=== PATIENT | male | born 1935 | race Hispanic/Latino ===

== ENCOUNTER 2022-07-15 20:20 | Inpatient (IN) | payer MEDICARE, OTHER ==
--- NOTE | 2022-07-15 21:49 | Emergency Department Report ---
HPI - General Chief Complaint: Altered Mental Status PUI?: Yes Time Seen by Provider: 07/15/22 21:17 - HPI HPI: 86-year-old male with a history of COPD, on approximately 2 L of oxygen via nasal cannula, chronic dysphagia and laryngitis per daughter's report, brought in by EMS for weakness. Patient's daughter reports that 7 days ago, he was discharged from an extensive stay at [facility]. She states he was admitted initially admitted to telemetry unit but was subsequently upgraded to the intensive care unit at the facility secondary to worsening respiratory status. She states that he has been on the decline "for some time." Per her report, the patient was made to be under palliative care since discharge but has not had a home evaluation. No recent falls or head traumas. Patient denies any symptoms at this time. Pain currently 0-10 ED Past Medical Hx - Past Medical History Hx Hypertension: Yes Hx Arthritis: Yes Hx Asthma: No Hx COPD: Yes Additional medical history: DDD - Surgical History Past Surgical History?: Yes Additional Surgical History: CERVICAL SPINE FUSION - Social History Smoking Status: Unknown if ever smoked Substance Use Type: None - Medications Home Medications: Home Medications Medication Instructions Recorded Confirmed Last Taken Type Albuterol Mdi (or & Nicu Only) 3 puff IH TID PRN 04/17/15 04/17/15 04/17/15 History [ProAir HFA Inhaler] Atorvastatin Calcium [Lipitor] 40 mg PO DAILY 04/17/15 04/17/15 04/17/15 History Cholecalciferol (Vitamin D3) 1,000 unit PO QDAY 04/17/15 04/17/15 04/17/15 History [Vitamin D3 2,000 UNIT CAP] Formoterol Fumarate [Foradil] 12 mcg IH Q12HR 04/17/15 04/17/15 04/17/15 History Hydrocortisone 1% [Hydrocortisone 1 applicatio TP TID 04/17/15 04/17/15 04/17/15 History 1% CREAM] Aspirin [Aspirin BABY CHEW TAB] 162 mg PO QDAY #30 tab.chew 04/20/15 Unknown Rx Ipratropium/Albuterol Sulfate 1 ampul IH Q6HRT PRN #1 box 04/20/15 Unknown Rx [DUONEB *Not for PRN Use*] Omeprazole [PriLOSEC] 40 mg PO DAILY #30 capsule. 04/20/15 Unknown Rx Prednisone [predniSONE 10 mg 10 mg PO .TAPER #1 tab.ds.pk 04/20/15 Unknown Rx (6-Day Pack, 21 Tabs)] levoFLOXacin [Levaquin] 500 mg PO QDAY #7 tablet 04/20/15 Unknown Rx ED Review of Systems ROS: Stated complaint: AMS Other details as noted in HPI Comment: All other systems reviewed and negative Physical Exam - Physical Exam Vital Signs: Vital Signs 07/15/22 07/15/22 20:20 21:05 Temperature 98.3 F 98.3 F Pulse Rate 80 85 Respiratory 18 20 Rate Blood Pressure 119/54 138/85 O2 Sat by Pulse 98 98 Oximetry General: Gen: Chronically ill-appearing frail elderly gentleman, lying on stretcher, speaking in full sentences, no drooling no stridor no respiratory distress, HEENT: Normocephalic atraumatic pupils equally round and reactive to light extraocular muscles intact sclera anicteric Neck: Full range of motion, no midline spinal tenderness palpation, no JVD, no carotid bruits, no nuchal rigidity CVS: S1-S2 regular rate and rhythm with no gallops rubs or murmurs, chest wall nontender Pulmonary: Clear to auscultation bilaterally, no wheezes rales or rhonchi Abdomen: Soft nondistended nontender no guarding or rebound tenderness, no palpable deformities or step-offs, normal active bowel sounds, no hepatospleno megaly, no pulsatile masses : Deferred Extremities: No cyanosis no clubbing no edema, intact distal peripheral pulses, Integumentary: Skin normal, no petechia no purpura no abscess no lacerations no evidence of trauma no evidence of infection Neuro: Patient is awake alert and oriented to person place time situation, mentating well, cranial nerves II through XII intact, no focal neurodeficits, se nsation grossly intact, unable to test gait at this time secondary to patient's current clinical status Psych: Calm cooperative, mood affect normal ED Course Vital Signs 07/15/22 07/15/22 20:20 21:05 Temperature 98.3 F 98.3 F Pulse Rate 80 85 Respiratory 18 20 Rate Blood Pressure 119/54 138/85 O2 Sat by Pulse 98 98 Oximetry ED Medical Decision Making - Lab Data Result diagrams: 07/15/22 21:31 07/15/22 21:31 - EKG Data EKG shows normal: sinus rhythm Rate: normal - EKG Data When compared to previous EKG there are: no significant change - Medical Decision Making 86-year-old male with multiple medical comorbidities brought in by EMS for weakness and altered mental status. On work-up patient found to have significant hyponatremia as well as leukocytosis. Leukocytosis likely secondary to UTI. Diagnostic imaging negative for any acute pathology. Patient has been given intravenous fluids, and Rocephin 1 g IV. Patient has been accepted by admitting railway signal technician, , for admission to the hospital service Critical Care Time: No Critical care attestation.: If time is entered above; I have spent that time in minutes in the direct care of this critically ill patient, excluding procedure time. ED Disposition Clinical Impression: Altered mental status, UTI (urinary tract infection), Hyponatremia Disposition: ADMITTED INPATIENT Is pt being admited?: Yes Does the pt Need Aspirin: No Condition: Stable
[2022-07-15 21:54] LABS: Hematocrit 46.3 % (35.5-45.6); Hemoglobin 15.3 gm/dl (11.8-15.2); Mean Corpuscular HGB Conc 33 % (32-34); Mean Corpuscular Volume 94 fl (84-94); Platelet Count 255 K/mm3 (140-440); Red Blood Count 4.93 M/mm3 (3.65-5.03); Red Cell Distribution Width 14.7 % (13.2-15.2)
[2022-07-15 21:56] LABS: Alanine Aminotransferase 16 units/L (7-56); Albumin 3.7 g/dL (3.9-5); Blood Urea Nitrogen 15 mg/dL (9-20); Hemolysis Index 115
[2022-07-15 22:00] LABS: BUN/Creatinine Ratio 50
--- NOTE | 2022-07-15 22:07 | XRay Report ---
CHEST 1 VIEW 07/15/2022 9:33 PM INDICATION / CLINICAL INFORMATION: altered mental status. COMPARISON: None available. FINDINGS: SUPPORT DEVICES: None. HEART / MEDIASTINUM: No significant abnormality. LUNGS / PLEURA: Lungs are hyperexpanded with chronic appearing interstitial prominence.. Streaky opac ities in both lung bases, likely atelectasis. No focal consolidation. No pneumothorax. ADDITIONAL FINDINGS: No significant additional findings. IMPRESSION: 1. No acute findings. Signer Name: Riley Peñaloza MD Signed: 07/15/2022 10:03 PM Workstation Name: [facility]
--- NOTE | 2022-07-15 22:21 | Cat Scan Report ---
CT HEAD WITHOUT CONTRAST INDICATION / CLINICAL INFORMATION: altered mental status. TECHNIQUE: All CT scans at this location are performed using CT dose reduction for ALARA by means of automated exposure control. COMPARISON: None available. FINDINGS: HEMORRHAGE: None. EXTRA-AXIAL SPACES: Normal in size and morphology for the patient's age. VENTRICULAR SYSTEM: Normal in size and morphology for the patient's age. CEREBRAL PARENCHYMA: Moderate white matter hypodensities likely representing microangiopathy. No acut e territorial infarct. Chronic lacunar infarct right basal ganglia. MIDLINE SHIFT / HERNIATION: None. CEREBELLUM / BRAINSTEM: No significant abnormality. ORBITS: Normal as visualized. SOFT TISSUES: No significant abnormality. SKULL: No significant abnormality. PARANASAL SINUSES / MASTOID AIR CELLS: Mild mucosal thickening sphenoid sinus. ADDITIONAL FINDINGS: None. IMPRESSION: 1. No acute intracranial abnormality. Signer Name: Riley Peñaloza MD Signed: 07/15/2022 10:17 PM Workstation Name: [id number]
[2022-07-15] MEDS ORDERED: cefTRIAXone/NS 1 GM/50 ML 1 GM/50 ML BAG IV ONE (22:23)
[2022-07-15] MEDS ORDERED: SODIUM CHLORIDE 0.9% 1000 ML 1,000 ML IV ONE (22:23)
[2022-07-15 22:35] LABS: Mucus,Urine 3+ /HPF
[2022-07-15 22:36] LABS: Color,Urine Amber (Yellow); Ictotest,Urine Negative (Negative); RBC,Urine > 182.0 /HPF (0.0-6.0)
[2022-07-15 22:50] LABS: Band Neutrophils # (Manual) 0.5 K/mm3; Basophils % (Manual) 0 % (0.0-1.8); Eosinophils % (Manual) 0 % (0.0-4.3); Total Cells Counted 100
[2022-07-15 22:51] LABS: Anisocytosis 1+; Large Platelets Few; Macrocytosis Few; Ovalocytes Few; Platelet Estimate Consistent w Auto
[2022-07-15] MEDS ORDERED: MORPHINE 4 MG/1 ML INJ IV PRN (23:07)
[2022-07-15] MEDS ORDERED: ONDANSETRON 4 MG/2 ML INJ IV PRN (23:07)
[2022-07-15] MEDS ORDERED: ACETAMINOPHEN 325 MG TAB PO PRN (23:07)
--- NOTE | 2022-07-15 23:17 | History and Physical Report ---
History of Present Illness Date of examination: 07/15/22 Date of admission: 07/15/2022 Chief complaint: Altered Mental Status Generalized weakness History of present illness: 86-year-old white male with known history of COPD on 2 L of oxygen at home by nasal cannula, history of chronic dysphagia and laryngitis presenting to the emergency room today via EMS for evaluation of generalized weakness and changes in mental status. Most of the history was provided by daughter and who were by the bedside. Patient was recently discharged from [facility] about a week ago for worsening respiratory status. There has been no fever or chills, no chest pain or shortness of breath, no nausea vomiting and no abdominal pain. According to family, patient has not been feeling quite well lately. Work-up in the emergency room today, lab reveals hyponatremia of 13 leukocytosis of 24. Urinalysis reveals a UTI. Chest x-ray and CT scan of the head were unremarkable. Past History Past Medical History: arthritis, COPD, hypertension, hyperlipidemia, other (DDD) Past Surgical History: Other (CERVICAL SPINE FUSION) Social history: no significant social history Family history: no significant family history Medications and Allergies Allergies Allergy/AdvReac Type Severity Reaction Status Date / Time Niacin Preparations AdvReac Rash Verified 04/17/15 13:45 simvastatin AdvReac LEG SPASMS Verified 04/17/15 13:45 Home Medications Medication Instructions Recorded Confirmed Last Taken Type Albuterol Mdi (or & Nicu Only) 3 puff IH TID PRN 04/17/15 04/17/15 04/17/15 History [ProAir HFA Inhaler] Atorvastatin Calcium [Lipitor] 40 mg PO DAILY 04/17/15 04/17/15 04/17/15 History Cholecalciferol (Vitamin D3) 1,000 unit PO QDAY 04/17/15 04/17/15 04/17/15 Histo ry [Vitamin D3 2,000 UNIT CAP] Formoterol Fumarate [Foradil] 12 mcg IH Q12HR 04/17/15 04/17/15 04/17/15 History Hydrocortisone 1% [Hydrocortisone 1 applicatio TP TID 04/17/15 04/17/15 04/17/15 History 1% CREAM] Aspirin [Aspirin BABY CHEW TAB] 162 mg PO QDAY #30 tab.chew 04/20/15 Unknown Rx Ipratropium/Albuterol Sulfate 1 ampul IH Q6HRT PRN #1 box 04/20/15 Unknown Rx [DUONEB *Not for PRN Use*] Omeprazole [PriLOSEC] 40 mg PO DAILY #30 capsule. 04/20/15 Unknown Rx Prednisone [predniSONE 10 mg 10 mg PO .TAPER #1 tab.ds.pk 04/20/15 Unknown Rx (6-Day Pack, 21 Tabs)] levoFLOXacin [Levaquin] 500 mg PO QDAY #7 tablet 04/20/15 Unknown Rx Active Meds: Active Medications Sodium Chloride (Nacl 0.9% 1000 Ml) 1,000 mls @ 150 mls/hr IV BOLUS ONE Stop: 07/16/22 05:02 Review of Systems ROS unobtainable: due to mental status Exam - Constitutional Vitals: Temp Pulse Resp BP Pulse Ox 98.3 F 85 20 138/85 98 07/15/22 21:05 07/15/22 21:05 07/15/22 21:05 07/15/22 21:05 07/15/22 21:05 General appearance: Present: no acute distress, cachectic - EENT Eyes: Present: PERRL, EOM intact. Absent: scleral icterus ENT: hearing intact, clear oral mucosa, dentition normal - Neck Neck: Present: supple, normal ROM - Respiratory Respiratory effort: normal Respiratory: bilateral: CTA - Cardiovascular Rhythm: regular Heart Sounds: Present: S1 & S2. Absent: gallop, systolic murmur, diastolic murmur, rub, click - Extremities Extremities: no ischemia, pulses intact, pulses symmetrical, No edema, normal temperature, normal color, Full ROM Peripheral Pulses: within normal limits - Abdominal General gastrointestinal: Present: soft, non-tender, non-distended, normal bowel sounds. Absent: mass - Integumentary Integumentary: Present: clear, warm, dry, normal turgor. Absent: rash - Musculoskeletal Musculoskeletal: strength equal bilaterally - Psychiatric Psychiatric: cooperative - Neurologic Neurologic: CNII-XII intact, no focal deficits, moves all extremities, other (Appears mildly confused. Speech not quite coherent) Results - Labs CBC & Chem 7: 07/15/22 21:31 07/15/22 21:31 Labs: Abnormal lab results 07/15/22 07/15/22 07/15/22 Range/Units 21:31 21:31 22:10 WBC 24.0 H (4.5-11.0) K/mm3 Hgb 15.3 H (11.8-15.2) gm/dl Hct 46.3 H (35.5-45.6) % Seg Neuts % (Manual) 87.0 H (40.0-70.0) % Lymphocytes % (Manual) 7.0 L (13.4-35.0) % Seg Neutrophils # Man 20.9 H (1.8-7.7) K/mm3 Monocytes # (Manual) 1.0 H (0.0-0.8) K/mm3 Sodium 130 L (137-145) mmol/L Potassium 5.1 H (3.6-5.0) mmol/L Chloride 90.4 L (98-107) mmol/L Creatinine 0.3 L (0.8-1.3) mg/dL Glucose 132 H (75-100) mg/dL Total Bilirubin 1.50 H (0.1-1.2) mg/dL Alkaline Phosphatase 138 H (35-129) units/L Total Protein 5.7 L (6.3-8.2) g/dL Albumin 3.7 L (3.9-5) g/dL Urine WBC (Auto) 129.0 H (0.0-6.0) /HPF Assessment and Plan Assessment: 1.Altered mental Status-possibly secondary to underlying infection. 2.UTI 3.Hyponatremia 4. H/O COPD 5.Hypertension Plan: 1. Patient admitted and placed on IV fluid and empiric IV antibiotics. 2. We await culture results. 3. We will resume routine home medications and monitor vital signs closely. DVT prophylaxis: Subcutaneous heparin CODE STATUS: Full code
[2022-07-16 05:10] LABS: Hematocrit 42.9 % (35.5-45.6); Hemoglobin 14.4 gm/dl (11.8-15.2); Mean Corpuscular HGB Conc 34 % (32-34); Mean Corpuscular Volume 93 fl (84-94); Platelet Count 238 K/mm3 (140-440); Red Cell Distribution Width 14.6 % (13.2-15.2)
[2022-07-16 05:21] LABS: Blood Urea Nitrogen 16 mg/dL (9-20); Calcium 8.6 mg/dL (8.4-10.2); Hemolysis Index 9
[2022-07-16 05:26] LABS: BUN/Creatinine Ratio 80
[2022-07-16] MEDS: HEPARIN 5,000 UNIT/1 ML VIAL SUB-Q SCH ×3 (06:28→21:13)
[2022-07-16 07:05] LABS: Total Cells Counted 100
[2022-07-16 07:06] LABS: Band Neutrophils # (Manual) 0.9 K/mm3; Basophils % (Manual) 0 % (0.0-1.8); Eosinophils % (Manual) 0 % (0.0-4.3)
[2022-07-16 07:08] LABS: Anisocytosis 1+; Large Platelets Few; Macrocytosis Few; Platelet Estimate Consistent w Auto
--- NOTE | 2022-07-16 09:12 | Progress Note ---
Assessment and Plan Assessment and plan: 86-year-old white male with known history of COPD on 2 L of oxygen at home by nasal cannula, history of chronic dysphagia and laryngitis presenting to the emergency room today via EMS for evaluation of generalized weakness and changes in mental status. Most of the history was provided by daughter and who were by the bedside. Patient was recently discharged from [facility] about a week ago for worsening respiratory status. Work-up in the emergency room today, lab reveals hyponatremia of 130 leukocytosis of 24K. Urinalysis revealed a UTI. Chest x-ray and CT scan of the head were unremark able. Sepsis. Present on admission. Patient meets criteria given the leukocytosis, tachycardia and diagnosis of UTI Acute hypoxic respiratory failure. Toxic metabolic encephalopathy. UTI Hyponatremia. COPD exacerbation. Hypertension 07/16/2022. (8am)Patient was hyporesponsive this morning necessitating a code met that was called this morning. Nurse reports patient was just "staring into space" and not responding to verbal or physical stimuli. After arrival of the code team and myself, patient more responsive and follows commands. No bowel or bladder incontinence. No witnessed seizure activity. No lateralizing signs or symptoms. Patient was noted to be hypoxic with saturations of 87%. Respiratory therapist to increase oxygen to maintain sats greater than 92%. We will add S delaney-Medrol IV for COPD exacerbation. Altered mentation likely secondary to sepsis/toxic metabolic encephalopathy. Continue to monitor and consider EEG or MRI if condition worsens. We will continue to treat underlying causes with IV antibiotics. Follow-up blood and urine cultures. (12:15p)Patient with a second code met. Again minimally responsive with now more significant desaturations. NRB with sats 85%. I discussed with the Code Status and she has opted for DNR/DNI but would like to pursue BIPAP whicj helped with his previous hospitalization at [place]. Check CXR and ABG stat. Tr ansfer to IMCU The high probability of a clinically significant, sudden or life threatening deterioration of the [respiratory and neurologic] system(s) required my full and direct attention, intervention and personal management. The aggregate critical care time was [42] minutes. This time is in addition to time spent performing reported procedures but includes the following: [x] Data Review and interpretation [x] Patient assessment and monitoring of vital signs [x] Documentation [x] Medication orders and management History Interval history: No new issues overnight. However, patient with code met call this morning. Hospitalist Physical - Constitutional Vitals: Temp Pulse Resp BP Pulse Ox 97.9 F 127 H 18 137/60 91 07/16/22 08:01 07/16/22 08:01 07/16/22 08:01 07/16/22 08:01 07/16/22 08:01 General appearance: Present: mild distress, cachectic - EENT Eyes: Present: PERRL, EOM intact ENT: hearing intact, clear oral mucosa, dentition normal - Neck Neck: Present: supple, normal ROM - Respiratory Respiratory effort: normal Respiratory: bilateral: CTA - Cardiovascular Rhythm: regular Heart Sounds: Present: S1 & S2. Absent: gallop, rub - Extremities Extremities: no ischemia, No edema, Full ROM - Abdominal General gastrointestinal: soft, non-tender, non-distended, normal bowel sounds - Integumentary Integumentary: Present: clear, warm, dry - Neurologic Neurologic: CNII-XII intact, moves all extremities Results - Labs CBC & Chem 7: 07/16/22 04:00 07/16/22 04:00 Labs: Laboratory Last Values WBC 23.4 K/mm3 (4.5-11.0) H 07/16/22 04:00 RBC 4.60 M/mm3 (3.65-5.03) 07/16/22 04:00 Hgb 14.4 gm/dl (11.8-15.2) 07/16/22 04:00 Hct 42.9 % (35.5-45.6) 07/16/22 04:00 MCV 93 fl (84-94) 07/16/22 04:00 MCH 31 pg (28-32) 07/16/22 04:00 MCHC 34 % (32-34) 07/16/22 04:00 RDW 14.6 % (13.2-15.2) 07/16/22 04:00 Plt Count 238 K/mm3 (140-440) 07/16/22 04:00 Add Manual Diff Complete 07/16/22 04:00 Total Counted 100 07/16/22 04:00 Seg Neutrophils % Loom Starter 07/16/22 04:00 Seg Neuts % (Manual) 88.0 % (40.0-70.0) H 07/16/22 04:00 Band Neutrophils % 4.0 % 07/16/22 04:00 Lymphocytes % (Manual) 3.0 % (13.4-35.0) L 07/16/22 04:00 Reactive Lymphs % (Man) 0 % 07/16/22 04:00 Monocytes % (Manual) 5.0 % (0.0-7.3) 07/16/22 04:00 Eosinophils % (Manual) 0 % (0.0-4.3) 07/16/22 04:00 Basophils % (Manual) 0 % (0.0-1.8) 07/16/22 04:00 Metamyelocytes % 0 % 07/16/22 04:00 Myelocytes % 0 % 07/16/22 04:00 Promyelocytes % 0 % 07/16/22 04:00 Blast Cells % 0 % 07/16/22 04:00 Nucleated RBC % Not Reportable 07/16/22 04:00 Seg Neutrophils # Man 20.6 K/mm3 (1.8-7.7) H 07/16/22 04:00 Band Neutrophils # 0.9 K/mm3 07/16/22 04:00 Lymphocytes # (Manual) 0.7 K/mm3 (1.2-5.4) L 07/16/22 04:00 Abs React Lymphs (Man) 0.0 K/mm3 07/16/22 04:00 Monocytes # (Manual) 1.2 K/mm3 (0.0-0.8) H 07/16/22 04:00 Eosinophils # (Manual) 0.0 K/mm3 (0.0-0.4) 07/16/22 04:00 Basophils # (Manual) 0.0 K/mm3 (0.0-0.1) 07/16/22 04:00 Metamyelocytes # 0.0 K/mm3 07/16/22 04:00 Myelocytes # 0.0 K/mm3 07/16/22 04:00 Promyelocytes # 0.0 K/mm3 07/16/22 04:00 Blast Cells # 0.0 K/mm3 07/16/22 04:00 WBC Morphology Not Reportable 07/16/22 04:00 Hypersegmented Neuts Not Reportable 07/16/22 04:00 Hyposegmented Neuts Not Reportable 07/16/22 04:00 Hypogranular Neuts Not Reportable 07/16/22 04:00 Smudge Cells Not Reportable 07/16/22 04:00 Toxic Granulation Not Reportable 07/16/22 04:00 Toxic Vacuolation Not Reportable 07/16/22 04:00 Dohle Bodies Not Reportable 07/16/22 04:00 Pelger-Huet Anomaly Not Reportable 07/16/22 04:00 Clarissa Rods Not Reportable 07/16/22 04:00 Platelet Estimate Consistent w auto 07/16/22 04:00 Clumped Platelets Not Reportable 07/16/22 04:00 Plt Clumps, EDTA Not Reportable 07/16/22 04:00 Large Platelets Few 07/16/22 04:00 Giant Platelets Not Reportable 07/16/22 04:00 Platelet Satelliting Not Reportable 07/16/22 04:00 Plt Morphology Comment Not Reportable 07/16/22 04:00 RBC Morphology Not Reportable 07/16/22 04:00 Dimorphic RBCs Not Reportable 07/16/22 04:00 Polychromasia Not Reportable 07/16/22 04:00 Hypochromasia Not Reportable 07/16/22 04:00 Poikilocytosis Not Reportable 07/16/22 04:00 Anisocytosis 1+ 07/16/22 04:00 Microcytosis Not Reportable 07/16/22 04:00 Macrocytosis Few 07/16/22 04:00 Spherocytes Not Reportable 07/16/22 04:00 Pappenheimer Bodies Not Reportable 07/16/22 04:00 Sickle Cells Not Reportable 07/16/22 04:00 Target Cells Not Reportable 07/16/22 04:00 Tear Drop Cells Not Reportable 07/16/22 04:00 Ovalocytes Not Reportable 07/16/22 04:00 Helmet Cells Not Reportable 07/16/22 04:00 Robert[place] Bodies Not Reportable 07/16/22 04:00 [place] Rings Not Reportable 07/16/22 04:00 Alverda Cells Not Reportable 07/16/22 04:00 Bite Cells Not Reportable 07/16/22 04:00 Crenated Cell Not Reportable 07/16/22 04:00 Elliptocytes Not Reportable 07/16/22 04:00 Acanthocytes (Spur) Not Reportable 07/16/22 04:00 Rouleaux Not Reportable 07/16/22 04:00 Hemoglobin C Crystals Not Reportable 07/16/22 04:00 Schistocytes Not Reportable 07/16/22 04:00 Malaria parasites Not Reportable 07/16/22 04:00 Omari Bodies Not Reportable 07/16/22 04:00 Hem Pathologist Commnt No 07/16/22 04:00 Sodium 133 mmol/L (137-145) L 07/16/22 04:00 Potassium 4.4 mmol/L (3.6-5.0) 07/16/22 04:00 Chloride 93.6 mmol/L (98-107) L 07/16/22 04:00 Carbon Dioxide 32 mmol/L (22-30) H 07/16/22 04:00 Anion Gap 12 mmol/L 07/16/22 04:00 BUN 16 mg/dL (9-20) 07/16/22 04:00 Creatinine 0.2 mg/dL (0.8-1.3) L 07/16/22 04:00 Estimated GFR > 60 ml/min 07/16/22 04:00 BUN/Creatinine Ratio 80 % 07/16/22 04:00 Glucose 115 mg/dL (75-100) H 07/16/22 04:00 POC Glucose 147 mg/dL (70-105) H 07/16/22 08:03 Lactic Acid 1.70 mmol/L (0.7-2.0) 07/15/22 21:31 Calcium 8.6 mg/dL (8.4-10.2) 07/16/22 04:00 Total Bilirubin 1.50 mg/dL (0.1-1.2) H 07/15/22 21:31 AST 27 units/L (5-40) 07/15/22 21:31 ALT 16 units/L (7-56) 07/15/22 21:31 Alkaline Phosphatase 138 units/L (35-129) H 07/15/22 21:31 Total Protein 5.7 g/dL (6.3-8.2) L 07/15/22 21:31 Albumin 3.7 g/dL (3.9-5) L 07/15/22 21:31 Albumin/Globulin Ratio 1.9 % 07/15/22 21:31 TSH 1.660 mlU/mL (0.270-4.200) 07/15/22 21:31 Urine Color Coreen (Yellow) 07/15/22 22:10 Urine Turbidity Hazy (Clear) 07/15/22 22:10 Specific Boon (Man) 1.020 (1.003-1.030) 07/15/22 22:10 Ur Protein (Man) 2+ mg/dL (Negative) 07/15/22 22:10 Ur Ketones (Man) Negative (Negative) 07/15/22 22:10 Ur Nitrite (Man) Negative (Negative) 07/15/22 22:10 Ur Reducing Substances Not Reportable 07/15/22 22:10 Urine Bilirubin (Man) Small (Negative) 07/15/22 22:10 Urine Ictotest Negative (Negative) 07/15/22 22:10 Leukocyte Esterase (Man) Negative (Negative) 07/15/22 22:10 Urine WBC (Auto) 129.0 /HPF (0.0-6.0) H 07/15/22 22:10 Urine RBC (Auto) > 182.0 /HPF (0.0-6.0) 07/15/22 22:10 U Epithel Cells (Auto) 1.0 /HPF (0-13.0) 07/15/22 22:10 Urine RBC (Manual) 3+ (Negative) 07/15/22 22:10 Urine Mucus 3+ /HPF 07/15/22 22:10 Microbiology: Microbiology 07/15/22 21:31 Peripheral/Venous Blood Culture - Preliminary Culture in Progress 07/15/22 21:31 Peripheral/Venous Blood Culture - Preliminary Culture in Progress Mead/IV: Voiding Method Condom Catheter Active Medications - Current Medications Current Medications: Generic Name Dose Route Start Last Admin Trade Name Freq PRN Reason Stop Dose Admin Acetaminophen 650 mg 07/15/22 23:07 Acetaminophen 325 Mg Tab PO Q4H PRN Pain MILD(1-3)/Fever >100.5/CHOWDHURY Heparin Sodium (Porcine) 5,000 unit 07/16/22 06:00 07/16/22 06:28 Heparin 5,000 Unit/1 Ml Vial SUB-Q 5,000 unit Q8HR NICKOLAS Administration Sodium Chloride 1,000 mls @ 125 mls/hr 07/15/22 23:15 Nacl 0.9% 1000 Ml IV DIRECT NICKOLAS Morphine Sulfate 2 mg 07/15/22 23:07 Morphine 2 Mg/1 Ml Inj IV Q4H PRN Pain, Moderate (4-6) Morphine Sulfate 4 mg 07/15/22 23:07 Morphine 4 Mg/1 Ml Inj IV Q4H PRN Pain , Severe (7-10) Ondansetron HCl 4 mg 07/15/22 23:07 Ondansetron 4 Mg/2 Ml Inj IV Q8H PRN Nausea And Vomiting Sodium Chloride 10 ml 07/16/22 10:00 Sodium Chloride 0.9% 10 Ml Flush Syringe IV BID NICKOLAS Sodium Chloride 10 ml 07/15/22 23:07 Sodium Chloride 0.9% 10 Ml Flush Syringe IV PRN PRN LINE FLUSH
[2022-07-16] MEDS: SODIUM CHLORIDE 0.9% 1000 ML 1,000 ML IV SCH ×2 (10:50→19:50)
[2022-07-16 12:27] LABS: ABG HCO3 35.7 mmol/L (20.0-26.0); ABG Methemoglobin 0.7 % (0.0-1.5); ABG Oxygen Saturation 88.4 % (95.0-99.0); ABG PCO2 112.5 mm Hg; ABG PO2 62.5 mm Hg (80.0-90.0)
[2022-07-16 12:37] LABS: ABG PH 7.119 pH Units (7.350-7.450)
--- NOTE | 2022-07-16 12:40 | XRay Report ---
CHEST 1 VIEW 07/16/2022 12:23 PM INDICATION / CLINICAL INFORMATION: change in mental status. COMPARISON: July 15, 2022 FINDINGS: SUPPORT DEVICES: None. HEART / MEDIASTINUM: No significant abnormality. LUNGS / PLEURA: Increased interstitial prominence with bilateral pulmonary opacities No pneumothorax. ADDITIONAL FINDINGS: No significant additional findings. IMPRESSION: Bilateral pulmonary opacities. Signer Name: Ziyad Chery MD Signed: 07/16/2022 12:36 PM Workstation Name: [employer]
--- NOTE | 2022-07-16 13:24 | Electrocardiograph Report ---
[facility] Test Date: 2022-07-15 Test Time: 21:12:58 Pat Name: GAUTAM STONE Department: Room: A469 1 Gender: M Ld Teacher: VIMAL PAYNE : 1935 Requested By: YUMIKO PASCUAL Order Number: [id number] Reading MD: Brunilda Zeng Measurements Intervals [place] Rate: 84 P: 84 MI: 200 QRS: 74 QRSD: 73 T: 83 QT: 377 QTc: 446 Interpretive Statements Sinus rhythm Atrial premature complex Probable anteroseptal infarct, old Nonspecific T abnormalities, lateral leads No previous ECG available for comparison Electronically Signed On 07-16-2022 13:23:51 EDT by Brunilda Zeng
--- NOTE | 2022-07-16 13:28 | Electrocardiograph Report ---
[facility] Test Date: 2022-07-16 Test Time: 08:16:11 Pat Name: GAUTAM STONE Department: Room: A469 1 Gender: M Embedder: BARBARA : 1935 Requested By: JONATHAN MENCHACA Order Number: [id number] Reading MD: Brunilda Zeng Measurements Intervals [place] Rate: 126 P: 84 MA: 200 QRS: 75 QRSD: 45 T: QT: 291 QTc: 422 Interpretive Statements Sinus tachycardia with first-degree AV block and frequent PACs Low voltage, precordial leads Nonspecific ST changes Compared to ECG 07/15/2022 21:12:58 Sinus rate has increased Electronically Signed On 07-16-2022 13:28:06 EDT by Brunilda Zeng
[2022-07-16] MEDS: methylPREDNISolone Sod Succinate 40 MG/1 ML INJ IV SCH ×2 (15:20→21:14)
[2022-07-17] MEDS: SODIUM CHLORIDE 0.9% 1000 ML 1,000 ML IV SCH ×3 (00:13→17:29)
[2022-07-17] MEDS: methylPREDNISolone Sod Succinate 40 MG/1 ML INJ IV SCH ×3 (06:07→22:03)
[2022-07-17] MEDS: HEPARIN 5,000 UNIT/1 ML VIAL SUB-Q SCH ×3 (06:07→22:03)
[2022-07-17] MEDS: CEFEPIME/NS 1 GM/100 ML 1 GM/100 ML BAG IV SCH ×2 (11:08→20:40)
--- NOTE | 2022-07-17 11:58 | Progress Note ---
Assessment and Plan Assessment and plan: 86-year-old white male with known history of COPD on 2 L of oxygen at home by nasal cannula, history of chronic dysphagia and laryngitis presenting to the emergency room today via EMS for evaluation of generalized weakness and changes in mental status. Most of the history was provided by daughter and who were by the bedside. Patient was recently discharged from [facility] about a week ago for worsening respiratory status. Work-up in the emergency room today, lab reveals hyponatremia of 130 leukocytosis of 24K. Urinalysis revealed a UTI. Chest x-ray and CT scan of the head were unremarka ble. Sepsis. Present on admission. Patient meets criteria given the leukocytosis, tachycardia and diagnosis of UTI Acute hypoxic respiratory failure. Toxic metabolic encephalopathy. Hyponatremia. COPD exacerbation. Hypertension Acute cystitis 07/16/2022. (8am)Patient was hyporesponsive this morning necessitating a code met that was called this morning. Nurse reports patient was just "staring into space" and not responding to verbal or physical stimuli. After arrival of the code team and myself, patient more responsive and follows commands. No bowel or bladder incontinence. No witnessed seizure activity. No lateralizing signs or symptoms. Patient was noted to be hypoxic with saturations of 87%. Respiratory therapist to increase oxygen to maintain sats greater than 92%. We will add Solu-Medrol IV for COPD exacerbation. Altered mentation likely secondary to sepsis/toxic metabolic encephalopathy. Continue to monitor and consider EEG or MRI if condition worsens. We will continue to treat underlying causes with IV antibiotics. Follow-up blood and urine cultures. (12:15p)Patient with a second code met. Again minimally responsive with now more significant desaturations. NRB with sats 85%. I discussed with the Code Status and she has opted for DNR/DNI but would like to pursue BIPAP akosua helped with his previous hospitalization at [place]. Check CXR and ABG stat. Transfer to [facility] 07/17: Patient remains unresponsive I did discuss extensively with the patient's spouse yesterday and today they did request for hospice which has been requested. Patient will require inpatient hospice due to severity of his illness. They are okay with continuing BiPAP until such time. I also okay with initiating antibiotic therapy for noted acute cystitis. Discussed with nursing staff at bedside. Advance care discussion yesterday and also today. The high probability of a clinically significant, sudden or life threatening deterioration of the [respiratory and neurologic] system(s) required my full and direct attention, intervention and personal management. The aggregate critical care time was [60] minutes. This time is in addition to time spent performing r eported procedures but includes the following: [x] Data Review and interpretation [x] Patient assessment and monitoring of vital signs [x] Documentation [x] Medication orders and management History Interval history: Patient seen and examined this morning remains unresponsive again BiPAP. No adverse event reported last night Hospitalist Physical - Physical exam Narrative exam: General appearance: Present: mild distress, cachectic on BiPAP - EENT Eyes: Present: PERRL, EOM intact ENT: hearing intact, clear oral mucosa, dentition normal - Neck Neck: Present: supple, normal ROM - Respiratory Respiratory effort: normal Respiratory: bilateral: CTA - Cardiovascular Rhythm: regular Heart Sounds: Present: S1 & S2. Absent: gallop, rub - Extremities Extremities: no ischemia, No edema, Full ROM - Abdominal General gastrointestinal: soft, non-tender, non-distended, normal bowel sounds - Integumentary Integumentary: Present: Pressure ulcer, warm, dry - Neurologic Neurologic: CNII-XII intact, moves all extremities - Constitutional Vitals: Temp Pulse Resp BP Pulse Ox 98.8 F 130 H 36 H 112/43 100 07/17/22 04:38 07/17/22 11:31 07/17/22 11:31 07/17/22 11:31 07/17/22 11:31 General appearance: Present: mild distress, cachectic Results - Labs CBC & Chem 7: 07/16/22 04:00 07/16/22 04:00 Labs: Laboratory Last Values WBC 23.4 K/mm3 (4.5-11.0) H 07/16/22 04:00 RBC 4.60 M/mm3 (3.65-5.03) 07/16/22 04:00 Hgb 14.4 gm/dl (11.8-15.2) 07/16/22 04:00 Hct 42.9 % (35.5-45.6) 07/16/22 04:00 MCV 93 fl (84-94) 07/16/22 04:00 MCH 31 pg (28-32) 07/16/22 04:00 MCHC 34 % (32-34) 07/16/22 04:00 RDW 14.6 % (13.2-15.2) 07/16/22 04:00 Plt Count 238 K/mm3 (140-440) 07/16/22 04:00 Add Manual Diff Complete 07/16/22 04:00 Total Counted 100 07/16/22 04:00 Seg Neutrophils % Bark Skinner 07/16/22 04:00 Seg Neuts % (Manual) 88.0 % (40.0-70.0) H 07/16/22 04:00 Band Neutrophils % 4.0 % 07/16/22 04:00 Lymphocytes % (Manual) 3.0 % (13.4-35.0) L 07/16/22 04:00 Reactive Lymphs % (Man) 0 % 07/16/22 04:00 Monocytes % (Manual) 5.0 % (0.0-7.3) 07/16/22 04:00 Eosinophils % (Manual) 0 % (0.0-4.3) 07/16/22 04:00 Basophils % (Manual) 0 % (0.0-1.8) 07/16/22 04:00 Metamyelocytes % 0 % 07/16/22 04:00 Myelocytes % 0 % 07/16/22 04:00 Promyelocytes % 0 % 07/16/22 04:00 Blast Cells % 0 % 07/16/22 04:00 Nucleated RBC % Not Reportable 07/16/22 04:00 Seg Neutrophils # Man 20.6 K/mm3 (1.8-7.7) H 07/16/22 04:00 Band Neutrophils # 0.9 K/mm3 07/16/22 04:00 Lymphocytes # (Manual) 0.7 K/mm3 (1.2-5.4) L 07/16/22 04:00 Abs React Lymphs (Man) 0.0 K/mm3 07/16/22 04:00 Monocytes # (Manual) 1.2 K/mm3 (0.0-0.8) H 07/16/22 04:00 Eosinophils # (Manual) 0.0 K/mm3 (0.0-0.4) 07/16/22 04:00 Basophils # (Manual) 0.0 K/mm3 (0.0-0.1) 07/16/22 04:00 Metamyelocytes # 0.0 K/mm3 07/16/22 04:00 Myelocytes # 0.0 K/mm3 07/16/22 04:00 Promyelocytes # 0.0 K/mm3 07/16/22 04:00 Blast Cells # 0.0 K/mm3 07/16/22 04:00 WBC Morphology Not Reportable 07/16/22 04:00 Hypersegmented Neuts Not Reportable 07/16/22 04:00 Hyposegmented Neuts Not Reportable 07/16/22 04:00 Hypogranular Neuts Not Reportable 07/16/22 04:00 Smudge Cells Not Reportable 07/16/22 04:00 Toxic Granulation Not Reportable 07/16/22 04:00 Toxic Vacuolation Not Reportable 07/16/22 04:00 Dohle Bodies Not Reportable 07/16/22 04:00 Pelger-Huet Anomaly Not Reportable 07/16/22 04:00 Clarissa Rods Not Reportable 07/16/22 04:00 Platelet Estimate Consistent w auto 07/16/22 04:00 Clumped Platelets Not Reportable 07/16/22 04:00 Plt Clumps, EDTA Not Reportable 07/16/22 04:00 Large Platelets Few 07/16/22 04:00 Giant Platelets Not Reportable 07/16/22 04:00 Platelet Satelliting Not Reportable 07/16/22 04:00 Plt Morphology Comment Not Reportable 07/16/22 04:00 RBC Morphology Not Reportable 07/16/22 04:00 Dimorphic RBCs Not Reportable 07/16/22 04:00 Polychromasia Not Reportable 07/16/22 04:00 Hypochromasia Not Reportable 07/16/22 04:00 Poikilocytosis Not Reportable 07/16/22 04:00 Anisocytosis 1+ 07/16/22 04:00 Microcytosis Not Reportable 07/16/22 04:00 Macrocytosis Few 07/16/22 04:00 Spherocytes Not Reportable 07/16/22 04:00 Pappenheimer Bodies Not Reportable 07/16/22 04:00 Sickle Cells Not Reportable 07/16/22 04:00 Target Cells Not Reportable 07/16/22 04:00 Tear Drop Cells Not Reportable 07/16/22 04:00 Ovalocytes Not Reportable 07/16/22 04:00 Helmet Cells Not Reportable 07/16/22 04:00 Robert-Lincroft Bodies Not Reportable 07/16/22 04:00 Newton Rings Not Reportable 07/16/22 04:00 Isis Cells Not Reportable 07/16/22 04:00 Bite Cells Not Reportable 07/16/22 04:00 Crenated Cell Not Reportable 07/16/22 04:00 Elliptocytes Not Reportable 07/16/22 04:00 Acanthocytes (Spur) Not Reportable 07/16/22 04:00 Rouleaux Not Reportable 07/16/22 04:00 Hemoglobin C Crystals Not Reportable 07/16/22 04:00 Schistocytes Not Reportable 07/16/22 04:00 Malaria parasites Not Reportable 07/16/22 04:00 Omari Bodies Not Reportable 07/16/22 04:00 Hem Pathologist Commnt No 07/16/22 04:00 ABG pH 7.119 pH Units (7.350-7.450) L* 07/16/22 12:10 ABG pCO2 112.5 mm Hg 07/16/22 12:10 ABG pO2 62.5 mm Hg (80.0-90.0) L 07/16/22 12:10 ABG HCO3 35.7 mmol/L (20.0-26.0) H 07/16/22 12:10 ABG O2 Saturation 88.4 % (95.0-99.0) L 07/16/22 12:10 ABG O2 Content 18.4 (0.0-44) 07/16/22 12:10 ABG Base Excess 2.0 mmol/L (-2.0-3.0) 07/16/22 12:10 ABG Hemoglobin 15.2 gm/dl (14.0-18.0) 07/16/22 12:10 ABG Carboxyhemoglobin 1.9 % (0.0-5.0) 07/16/22 12:10 ABG Methemoglobin 0.7 % (0.0-1.5) 07/16/22 12:10 Oxyhemoglobin 86.1 % (95.0-99.0) L 07/16/22 12:10 FiO2 100 % 07/16/22 12:10 Sodium 133 mmol/L (137-145) L 07/16/22 04:00 Potassium 4.4 mmol/L (3.6-5.0) 07/16/22 04:00 Chloride 93.6 mmol/L (98-107) L 07/16/22 04:00 Carbon Dioxide 32 mmol/L (22-30) H 07/16/22 04:00 Anion Gap 12 mmol/L 07/16/22 04:00 BUN 16 mg/dL (9-20) 07/16/22 04:00 Creatinine 0.2 mg/dL (0.8-1.3) L 07/16/22 04:00 Estimated GFR > 60 ml/min 07/16/22 04:00 BUN/Creatinine Ratio 80 % 07/16/22 04:00 Glucose 115 mg/dL (75-100) H 07/16/22 04:00 POC Glucose 148 mg/dL (70-105) H 07/16/22 12:06 Lactic Acid 1.70 mmol/L (0.7-2.0) 07/15/22 21:31 Calcium 8.6 mg/dL (8.4-10.2) 07/16/22 04:00 Total Bilirubin 1.50 mg/dL (0.1-1.2) H 07/15/22 21:31 AST 27 units/L (5-40) 07/15/22 21:31 ALT 16 units/L (7-56) 07/15/22 21:31 Alkaline Phosphatase 138 units/L (35-129) H 07/15/22 21:31 Total Protein 5.7 g/dL (6.3-8.2) L 07/15/22 21:31 Albumin 3.7 g/dL (3.9-5) L 07/15/22 21:31 Albumin/Globulin Ratio 1.9 % 07/15/22 21:31 TSH 1.660 mlU/mL (0.270-4.200) 07/15/22 21:31 Urine Color Coreen (Yellow) 07/15/22 22:10 Urine Turbidity Hazy (Clear) 07/15/22 22:10 Specific Cato (Man) 1.020 (1.003-1.030) 07/15/22 22:10 Ur Protein (Man) 2+ mg/dL (Negative) 07/15/22 22:10 Ur Ketones (Man) Negative (Negative) 07/15/22 22:10 Ur Nitrite (Man) Negative (Negative) 07/15/22 22:10 Ur Reducing Substances Not Reportable 07/15/22 22:10 Urine Bilirubin (Man) Small (Negative) 07/15/22 22:10 Urine Ictotest Negative (Negative) 07/15/22 22:10 Leukocyte Esterase (Man) Negative (Negative) 07/15/22 22:10 Urine WBC (Auto) 129.0 /HPF (0.0-6.0) H 07/15/22 22:10 Urine RBC (Auto) > 182.0 /HPF (0.0-6.0) 07/15/22 22:10 U Epithel Cells (Auto) 1.0 /HPF (0-13.0) 07/15/22 22:10 Urine RBC (Manual) 3+ (Negative) 07/15/22 22:10 Urine Mucus 3+ /HPF 07/15/22 22:10 Microbiology: Microbiology 07/15/22 21:31 Peripheral/Venous Blood Culture - Preliminary NO GROWTH AFTER 24 HOURS 07/15/22 21:31 Peripheral/Venous Blood Culture - Preliminary NO GROWTH AFTER 24 HOURS Mead/IV: Voiding Method Condom Catheter Active Medications - Current Medications Current Medications: Generic Name Dose Route Start Last Admin Trade Name Freq PRN Reason Stop Dose Admin Acetaminophen 650 mg 07/15/22 23:07 Acetaminophen 325 Mg Tab PO Q4H PRN Pain MILD(1-3)/Fever >100.5/CHOWDHURY Heparin Sodium (Porcine) 5,000 unit 07/16/22 06:00 07/17/22 06:07 Heparin 5,000 Unit/1 Ml Vial SUB-Q 5,000 unit Q8HR NICKOLAS Administration Sodium Chloride 1,000 mls @ 125 mls/hr 07/15/22 23:15 07/17/22 08:32 Nacl 0.9% 1000 Ml IV 125 mls/hr DIRECT NICKOLAS Administration Cefepime HCl 1 gm in 100 mls @ 200 mls/hr 07/17/22 11:00 07/17/22 11:08 Cefepime/Ns 1 Gm/100 Ml IV 200 mls/hr Q8H NICKOLAS Administration Protocol Methylprednisolone Sodium Succinate 40 mg 07/16/22 14:00 07/17/22 06:07 Methylprednisolone Sod Succinate 40 Mg/1 Ml Inj IV 40 mg Q8HR NICKOLAS Administration Morphine Sulfate 2 mg 07/15/22 23:07 Morphine 2 Mg/1 Ml Inj IV Q4H PRN Pain, Moderate (4-6) Morphine Sulfate 4 mg 07/15/22 23:07 Morphine 4 Mg/1 Ml Inj IV Q4H PRN Pain , Severe (7-10) Ondansetron HCl 4 mg 07/15/22 23:07 Ondansetron 4 Mg/2 Ml Inj IV Q8H PRN Nausea And Vomiting Sodium Chloride 10 ml 07/16/22 10:00 07/17/22 11:08 Sodium Chloride 0.9% 10 Ml Flush Syringe IV 10 ml BID NICKOLAS Administration Sodium Chloride 10 ml 07/15/22 23:07 Sodium Chloride 0.9% 10 Ml Flush Syringe IV PRN PRN LINE FLUSH Nutrition/Malnutrition Assess - Dietary Evaluation Nutrition/Malnutrition Findings: Nutrition Notes Start: 07/16/22 13:59 Freq: Status: Active Protocol: Document 07/16/22 13:59 CM (Rec: 07/16/22 14:28 CM [id number]) Co-Sign 07/16/22 13:59 WW Nutrition Notes Need for Assessment generated from: hookman,Low BMI Initial or Follow up Assessment Current Diagnosis COPD,Hypertension, Hyperlipidemia Other Pertinent Diagnosis AMS, UTI, chronic dysphagia, laryngitis, hyponatremia Current Diet Cardiac Diet Labs/Tests 07/16: Na 133 Cl 93.6 CO2 32 Cr 0.2 Glu 115 Pertinent Medications 07/16: Reviewed Height 5 ft 8 in Weight 45.359 kg Usual Body Weight 44.09 kg [place] Body Weight (kg) 70.00 BMI 15.2 Intake Prior to Admission Good Weight change and time frame No unintentional wt loss reported per malnutrition screening tool. Pt's reported wt loss over the past 5 years. Within past year pt weighed October 51.4kg, January 49.09kg, March 46 .8kg, May 44.5kg, 3 weeks ago 44.09kg - insignificant wt loss regarding malnutrition, but worth noting and monitoring. Weight Status Underweight Subjective/Other Information RD consult for hx of difficulty swallowing and low BMI. Spoke with who reported progressive wt loss over the past 5 years related to difficulty chewing. She reported teeth needed to be adjusted and sharpened ( dentures). She reported pt's appetite has increased recently since modifying textures (pureed diet / nectar thick liquids) - 8-10oz Puree per meal of intermittent meat , vegetables, starch. Impaired swallowing ability noted per physical assessment. Burn Absent Trauma Absent GI Symptoms None Difficulty In Swallowing,Chewing Food Allergy No Skin Integrity/Comment Area of concern (Heel / Sacrum ) Current % PO Negligible Minimum of two criteria No Fluid Accumulation N/A Reduced Client Services Associate Strength N/A (non-severe) Protein-Calorie Malnutrition N\\A #2 Nutrition Diagnosis Swallowing difficulty Etiology Laryngitis As Evidenced by Signs and Symptoms report of nectar thick liquids consumed at home. #1 Nutrition Diagnosis Biting/Chewing (masticatory) difficulty Etiology Poor dentition As Evidenced by Signs and Symptoms Pt report of pureed diet at home Is patient on ventilator? No Is Patient Ambulatory and/or Out of Bed No REE-([facility]-confined to bed) 8416.424 Calculation Used for Recommendations [facility] Additional Notes Protein: 1.0-1.2g/kg ABW; 45- 54g PRO q day Fluid: 30mL/kg or per MD Nutrition Intervention Change Diet Order: Recommend modifying diet texture to pureed (4) and mildly thick (2) or per IT ADMIN recommendations. Goal #1 Pt to consume >75% of estimated energy/protein needs through current diet order. Goal #2 Pt to maintain current wt status within 2.5% during LOS. Follow-Up By: 07/21/22 Additional Comments Monitor % PO intake, wt status , and nutrition-related lab values.
[2022-07-18] MEDS: CEFEPIME/NS 1 GM/100 ML 1 GM/100 ML BAG IV SCH (03:41)
[2022-07-18] MEDS: SODIUM CHLORIDE 0.9% 1000 ML 1,000 ML IV SCH ×2 (03:44→09:27)
[2022-07-18] MEDS: HEPARIN 5,000 UNIT/1 ML VIAL SUB-Q SCH (06:33)
[2022-07-18] MEDS: methylPREDNISolone Sod Succinate 40 MG/1 ML INJ IV SCH (06:33)
--- NOTE | 2022-07-18 10:30 | Progress Note ---
Assessment and Plan Assessment and plan: 86-year-old white male with known history of COPD on 2 L of oxygen at home by nasal cannula, history of chronic dysphagia and laryngitis presenting to the emergency room today via EMS for evaluation of generalized weakness and changes in mental status. Most of the history was provided by daughter and who were by the bedside. Patient was recently discharged from [facility] about a week ago for worsening respiratory status. Work-up in the emergency room today, lab reveals hyponatremia of 130 leukocytosis of 24K. Urinalysis revealed a UTI. Chest x-ray and CT scan of the head were unremarka ble. Sepsis. Present on admission. Patient meets criteria given the leukocytosis, tachycardia and diagnosis of UTI Acute hypoxic respiratory failure. Toxic metabolic encephalopathy. Hyponatremia. COPD exacerbation. Hypertension Acute cystitis 07/16/2022. (8am)Patient was hyporesponsive this morning necessitating a code met that was called this morning. Nurse reports patient was just "staring into space" and not responding to verbal or physical stimuli. After arrival of the code team and myself, patient more responsive and follows commands. No bowel or bladder incontinence. No witnessed seizure activity. No lateralizing signs or symptoms. Patient was noted to be hypoxic with saturations of 87%. Respiratory therapist to increase oxygen to maintain sats greater than 92%. We will add Solu-Medrol IV for COPD exacerbation. Altered mentation likely secondary to sepsis/toxic metabolic encephalopathy. Continue to monitor and consider EEG or MRI if condition worsens. We will continue to treat underlying causes with IV antibiotics. Follow-up blood and urine cultures. (12:15p)Patient with a second code met. Again minimally responsive with now more significant desaturations. NRB with sats 85%. I discussed with the Code Status and she has opted for DNR/DNI but would like to pursue BIPAP anthonyj helped with his previous hospitalization at [facility]. Check CXR and ABG stat. Transfer to [facility] 07/17: Patient remains unresponsive I did discuss extensively with the patient's spouse yesterday and today they did request for hospice which has been requested. Patient will require inpatient hospice due to severity of his illness. They are okay with continuing BiPAP until such time. I also okay with initiating antibiotic therapy for noted acute cystitis. Discussed with nursing staff at bedside. Advance care discussion yesterday and also today. 07/18: No adverse event reported last night, low grade fever. Discussed with the daughter and spouse at bedside. They will like comfort measures only at this time pending Hospice transfer. They also requested discontinuation of BiPAP. 35 mins spent on advance care planning. Comfort measures orders placed. Discussed with Nursing and RT. The high probability of a clinically significant, sudden or life threatening deterioration of the [respiratory and neurologic] system(s) required my full and direct attention, intervention and personal management. The aggregate critical care time was [60] minutes. This time is in addition to time spent performing reported procedures but includes the following: [x] Data Review and interpretation [x] Patient assessment and monitoring of vital signs [x] Documentation [x] Medication orders and management History Interval history: Patient seen and examined this morning remains unresponsive again BiPAP. No adverse event reported last night, low grade fever. Discussed with the daughter and spouse at bedside. They will like comfort measures only at this time pending Hospice transfer. They also requested discontinuation of BiPAP Hospitalist Physical - Physical exam Narrative exam: General appearance: Present: mild distress, cachectic on BiPAP, unresponsive - EENT Eyes: Present: PERRL, EOM intact ENT: hearing intact, clear oral mucosa, dentition normal - Neck Neck: Present: supple, normal ROM - Respiratory Respiratory effort: normal Respiratory: bilateral: CTA - Cardiovascular Rhythm: regular Heart Sounds: Present: S1 & S2. Absent: gallop, rub - Extremities Extremities: no ischemia, No edema, Full ROM - Abdominal General gastrointestinal: soft, non-tender, non-distended, normal bowel sounds - Integumentary Integumentary: Present: Pressure ulcer, warm, dry - Neurologic Neurologic: CNII-XII intact, moves all extremities - Constitutional Vitals: Temp Pulse Resp BP Pulse Ox 100.1 F H 124 H 34 H 116/42 100 07/18/22 07:20 07/18/22 07:00 07/18/22 07:00 07/18/22 07:00 07/18/22 07:00 General appearance: Present: mild distress, cachectic Results - Labs CBC & Chem 7: 07/16/22 04:00 07/16/22 04:00 Labs: Laboratory Last Values WBC 23.4 K/mm3 (4.5-11.0) H 07/16/22 04:00 RBC 4.60 M/mm3 (3.65-5.03) 07/16/22 04:00 Hgb 14.4 gm/dl (11.8-15.2) 07/16/22 04:00 Hct 42.9 % (35.5-45.6) 07/16/22 04:00 MCV 93 fl (84-94) 07/16/22 04:00 MCH 31 pg (28-32) 07/16/22 04:00 MCHC 34 % (32-34) 07/16/22 04:00 RDW 14.6 % (13.2-15.2) 07/16/22 04:00 Plt Count 238 K/mm3 (140-440) 07/16/22 04:00 Add Manual Diff Complete 07/16/22 04:00 Total Counted 100 07/16/22 04:00 Seg Neutrophils % Radio Repair Teacher 07/16/22 04:00 Seg Neuts % (Manual) 88.0 % (40.0-70.0) H 07/16/22 04:00 Band Neutrophils % 4.0 % 07/16/22 04:00 Lymphocytes % (Manual) 3.0 % (13.4-35.0) L 07/16/22 04:00 Reactive Lymphs % (Man) 0 % 07/16/22 04:00 Monocytes % (Manual) 5.0 % (0.0-7.3) 07/16/22 04:00 Eosinophils % (Manual) 0 % (0.0-4.3) 07/16/22 04:00 Basophils % (Manual) 0 % (0.0-1.8) 07/16/22 04:00 Metamyelocytes % 0 % 07/16/22 04:00 Myelocytes % 0 % 07/16/22 04:00 Promyelocytes % 0 % 07/16/22 04:00 Blast Cells % 0 % 07/16/22 04:00 Nucleated RBC % Not Reportable 07/16/22 04:00 Seg Neutrophils # Man 20.6 K/mm3 (1.8-7.7) H 07/16/22 04:00 Band Neutrophils # 0.9 K/mm3 07/16/22 04:00 Lymphocytes # (Manual) 0.7 K/mm3 (1.2-5.4) L 07/16/22 04:00 Abs React Lymphs (Man) 0.0 K/mm3 07/16/22 04:00 Monocytes # (Manual) 1.2 K/mm3 (0.0-0.8) H 07/16/22 04:00 Eosinophils # (Manual) 0.0 K/mm3 (0.0-0.4) 07/16/22 04:00 Basophils # (Manual) 0.0 K/mm3 (0.0-0.1) 07/16/22 04:00 Metamyelocytes # 0.0 K/mm3 07/16/22 04:00 Myelocytes # 0.0 K/mm3 07/16/22 04:00 Promyelocytes # 0.0 K/mm3 07/16/22 04:00 Blast Cells # 0.0 K/mm3 07/16/22 04:00 WBC Morphology Not Reportable 07/16/22 04:00 Hypersegmented Neuts Not Reportable 07/16/22 04:00 Hyposegmented Neuts Not Reportable 07/16/22 04:00 Hypogranular Neuts Not Reportable 07/16/22 04:00 Smudge Cells Not Reportable 07/16/22 04:00 Toxic Granulation Not Reportable 07/16/22 04:00 Toxic Vacuolation Not Reportable 07/16/22 04:00 Dohle Bodies Not Reportable 07/16/22 04:00 Pelger-Huet Anomaly Not Reportable 07/16/22 04:00 Clarissa Rods Not Reportable 07/16/22 04:00 Platelet Estimate Consistent w auto 07/16/22 04:00 Clumped Platelets Not Reportable 07/16/22 04:00 Plt Clumps, EDTA Not Reportable 07/16/22 04:00 Large Platelets Few 07/16/22 04:00 Giant Platelets Not Reportable 07/16/22 04:00 Platelet Satelliting Not Reportable 07/16/22 04:00 Plt Morphology Comment Not Reportable 07/16/22 04:00 RBC Morphology Not Reportable 07/16/22 04:00 Dimorphic RBCs Not Reportable 07/16/22 04:00 Polychromasia Not Reportable 07/16/22 04:00 Hypochromasia Not Reportable 07/16/22 04:00 Poikilocytosis Not Reportable 07/16/22 04:00 Anisocytosis 1+ 07/16/22 04:00 Microcytosis Not Reportable 07/16/22 04:00 Macrocytosis Few 07/16/22 04:00 Spherocytes Not Reportable 07/16/22 04:00 Pappenheimer Bodies Not Reportable 07/16/22 04:00 Sickle Cells Not Reportable 07/16/22 04:00 Target Cells Not Reportable 07/16/22 04:00 Tear Drop Cells Not Reportable 07/16/22 04:00 Ovalocytes Not Reportable 07/16/22 04:00 Helmet Cells Not Reportable 07/16/22 04:00 [employer] Bodies Not Reportable 07/16/22 04:00 [place] Rings Not Reportable 07/16/22 04:00 Isis Cells Not Reportable 07/16/22 04:00 Bite Cells Not Reportable 07/16/22 04:00 Crenated Cell Not Reportable 07/16/22 04:00 Elliptocytes Not Reportable 07/16/22 04:00 Acanthocytes (Spur) Not Reportable 07/16/22 04:00 Rouleaux Not Reportable 07/16/22 04:00 Hemoglobin C Crystals Not Reportable 07/16/22 04:00 Schistocytes Not Reportable 07/16/22 04:00 Malaria parasites Not Reportable 07/16/22 04:00 Omari Bodies Not Reportable 07/16/22 04:00 Hem Pathologist Commnt No 07/16/22 04:00 ABG pH 7.119 pH Units (7.350-7.450) L* 07/16/22 12:10 ABG pCO2 112.5 mm Hg 07/16/22 12:10 ABG pO2 62.5 mm Hg (80.0-90.0) L 07/16/22 12:10 ABG HCO3 35.7 mmol/L (20.0-26.0) H 07/16/22 12:10 ABG O2 Saturation 88.4 % (95.0-99.0) L 07/16/22 12:10 ABG O2 Content 18.4 (0.0-44) 07/16/22 12:10 ABG Base Excess 2.0 mmol/L (-2.0-3.0) 07/16/22 12:10 ABG Hemoglobin 15.2 gm/dl (14.0-18.0) 07/16/22 12:10 ABG Carboxyhemoglobin 1.9 % (0.0-5.0) 07/16/22 12:10 ABG Methemoglobin 0.7 % (0.0-1.5) 07/16/22 12:10 Oxyhemoglobin 86.1 % (95.0-99.0) L 07/16/22 12:10 FiO2 100 % 07/16/22 12:10 Sodium 133 mmol/L (137-145) L 07/16/22 04:00 Potassium 4.4 mmol/L (3.6-5.0) 07/16/22 04:00 Chloride 93.6 mmol/L (98-107) L 07/16/22 04:00 Carbon Dioxide 32 mmol/L (22-30) H 07/16/22 04:00 Anion Gap 12 mmol/L 07/16/22 04:00 BUN 16 mg/dL (9-20) 07/16/22 04:00 Creatinine 0.2 mg/dL (0.8-1.3) L 07/16/22 04:00 Estimated GFR > 60 ml/min 07/16/22 04:00 BUN/Creatinine Ratio 80 % 07/16/22 04:00 Glucose 115 mg/dL (75-100) H 07/16/22 04:00 POC Glucose 148 mg/dL (70-105) H 07/16/22 12:06 Lactic Acid 1.70 mmol/L (0.7-2.0) 07/15/22 21: Calcium 8.6 mg/dL (8.4-10.2) 07/16/22 04:00 Total Bilirubin 1.50 mg/dL (0.1-1.2) H 07/15/22 21:31 AST 27 units/L (5-40) 07/15/22 21:31 ALT 16 units/L (7-56) 07/15/22 21:31 Alkaline Phosphatase 138 units/L (35-129) H 07/15/22 21:31 Total Protein 5.7 g/dL (6.3-8.2) L 07/15/22 21:31 Albumin 3.7 g/dL (3.9-5) L 07/15/22 21:31 Albumin/Globulin Ratio 1.9 % 07/15/22 21:31 TSH 1.660 mlU/mL (0.270-4.200) 07/15/22 21:31 Urine Color Coreen (Yellow) 07/15/22 22:10 Urine Turbidity Hazy (Clear) 07/15/22 22:10 Specific [place] (Man) 1.020 (1.003-1.030) 07/15/22 22:10 Ur Protein (Man) 2+ mg/dL (Negative) 07/15/22 22:10 Ur Ketones (Man) Negative (Negative) 07/15/22 22:10 Ur Nitrite (Man) Negative (Negative) 07/15/22 22:10 Ur Reducing Substances Not Reportable 07/15/22 22:10 Urine Bilirubin (Man) Small (Negative) 07/15/22 22:10 Urine Ictotest Negative (Negative) 07/15/22 22:10 Leukocyte Esterase (Man) Negative (Negative) 07/15/22 22:10 Urine WBC (Auto) 129.0 /HPF (0.0-6.0) H 07/15/22 22:10 Urine RBC (Auto) > 182.0 /HPF (0.0-6.0) 07/15/22 22:10 U Epithel Cells (Auto) 1.0 /HPF (0-13.0) 07/15/22 22:10 Urine RBC (Manual) 3+ (Negative) 07/15/22 22:10 Urine Mucus 3+ /HPF 07/15/22 22:10 Microbiology: Microbiology 07/15/22 21:31 Peripheral/Venous Blood Culture - Preliminary NO GROWTH AFTER 48 HOURS 07/15/22 21:31 Peripheral/Venous Blood Culture - Preliminary NO GROWTH AFTER 48 HOURS Mead/IV: Voiding Method Condom Catheter Active Medications - Current Medications Current Medications: Generic Name Dose Route Start Last Admin Trade Name Freq PRN Reason Stop Dose Admin Acetaminophen 650 mg 07/15/22 23:07 Acetaminophen 325 Mg Tab PO Q4H PRN Pain MILD(1-3)/Fever >100.5/CHOWDHURY Heparin Sodium (Porcine) 5,000 unit 07/16/22 06:00 07/18/22 06:33 Heparin 5,000 Unit/1 Ml Vial SUB-Q 5,000 unit Q8HR NICKOLAS Administration Sodium Chloride 1,000 mls @ 125 mls/hr 07/15/22 23:15 07/18/22 09:27 Nacl 0.9% 1000 Ml IV 125 mls/hr DIRECT NICKOLAS Administration Cefepime HCl 1 gm in 100 mls @ 200 mls/hr 07/17/22 11:00 07/18/22 03:41 Cefepime/Ns 1 Gm/100 Ml IV 200 mls/hr Q8H NICKOLAS Administration Protocol Methylprednisolone Sodium Succinate 40 mg 07/16/22 14:00 07/18/22 06:33 Methylprednisolone Sod Succinate 40 Mg/1 Ml Inj IV 40 mg Q8HR NICKOLAS Administration Morphine Sulfate 2 mg 07/15/22 23:07 Morphine 2 Mg/1 Ml Inj IV Q4H PRN Pain, Moderate (4-6) Morphine Sulfate 4 mg 07/15/22 23:07 Morphine 4 Mg/1 Ml Inj IV Q4H PRN Pain , Severe (7-10) Ondansetron HCl 4 mg 07/15/22 23:07 Ondansetron 4 Mg/2 Ml Inj IV Q8H PRN Nausea And Vomiting Sodium Chloride 10 ml 07/16/22 10:00 07/18/22 09:26 Sodium Chloride 0.9% 10 Ml Flush Syringe IV 10 ml BID NICKOLAS Administration Sodium Chloride 10 ml 07/15/22 23:07 Sodium Chloride 0.9% 10 Ml Flush Syringe IV PRN PRN LINE FLUSH Nutrition/Malnutrition Assess - Dietary Evaluation Nutrition/Malnutrition Findings: Nutrition Notes Start: 07/16/22 13:59 Freq: Status: Active Protocol: Document 07/16/22 13:59 CM (Rec: 07/16/22 14:28 CM [id number]) Co-Sign 07/16/22 13:59 WW Nutrition Notes Need for Assessment generated from: usability strategist,Low BMI Initial or Follow up Assessment Current Diagnosis COPD,Hypertension, Hyperlipidemia Other Pertinent Diagnosis AMS, UTI, chronic dysphagia, laryngitis, hyponatremia Current Diet Cardiac Diet Labs/Tests 07/16: Na 133 Cl 93.6 CO2 32 Cr 0.2 Glu 115 Pertinent Medications 07/16: Reviewed Height 5 ft 8 in Weight 45.359 kg Usual Body Weight 44.09 kg [place] Body Weight (kg) 70.00 BMI 15.2 Intake Prior to Admission Good Weight change and time frame No unintentional wt loss reported per malnutrition screening tool. Pt's reported wt loss over the past 5 years. Within past year pt weighed October 51.4kg, January 49.09kg, March 46 .8kg, May 44.5kg, 3 weeks ago 44.09kg - insignificant wt loss regarding malnutrition, but worth noting and monitoring. Weight Status Underweight Subjective/Other Information RD consult for hx of difficulty swallowing and low BMI. Spoke with who reported progressive wt loss over the past 5 years related to difficulty chewing. She reported teeth needed to be adjusted and sharpened ( dentures). She reported pt's appetite has increased recently since modifying textures (pureed diet / nectar thick liquids) - 8-10oz Puree per meal of intermittent meat , vegetables, starch. Impaired swallowing ability noted per physical assessment. Burn Absent Trauma Absent GI Symptoms None Difficulty In Swallowing,Chewing Food Allergy No Skin Integrity/Comment Area of concern (Heel / Sacrum ) Current % PO Negligible Minimum of two criteria No Fluid Accumulation N/A Reduced Dental Receptionist Strength N/A (non-severe) Protein-Calorie Malnutrition N\\A #2 Nutrition Diagnosis Swallowing difficulty Etiology Laryngitis As Evidenced by Signs and Symptoms report of nectar thick liquids consumed at home. #1 Nutrition Diagnosis Biting/Chewing (masticatory) difficulty Etiology Poor dentition As Evidenced by Signs and Symptoms Pt report of pureed diet at home Is patient on ventilator? No Is Patient Ambulatory and/or Out of Bed No REE-([facility]-confined to bed) 4752.938 Calculation Used for Recommendations [facility] Additional Notes Protein: 1.0-1.2g/kg ABW; 45- 54g PRO q day Fluid: 30mL/kg or per MD Nutrition Intervention Change Diet Order: Recommend modifying diet texture to pureed (4) and mildly thick (2) or per SILVER WRAPPER recommendations. Goal #1 Pt to consume >75% of estimated energy/protein needs through current diet order. Goal #2 Pt to maintain current wt status within 2.5% during LOS. Follow-Up By: 07/21/22 Additional Comments Monitor % PO intake, wt status , and nutrition-related lab values.
[2022-07-18] MEDS: MORPHINE 2 MG/1 ML INJ IV PRN ×2 (11:22→15:30)
[2022-07-18] MEDS ORDERED: HYPROMELLOSE 0.5% OPHTH SOLN 15 ML OU PRN (12:00)
[2022-07-18] MEDS ORDERED: ONDANSETRON 4 MG/2 ML INJ IV PRN (12:00)
[2022-07-18] MEDS ORDERED: ACETAMINOPHEN 650 MG RECT SUPP PR PRN (12:00)
[2022-07-18] MEDS ORDERED: LORazepam 2 MG/ML VIAL IV PRN ×2 (12:00)
--- NOTE | 2022-07-18 16:55 | Death Note ---
Note Date of : 07/18/22 Time of : 16:50 Time Pronounced: 16:55 - Preliminary Cause of (problem) (1) Acute on chronic respiratory failure with hypoxia Preliminary cause of (2) COPD (chronic obstructive pulmonary disease) Preliminary cause of
[2022-07-18 16:58] VITALS: BP 73/35
[2022-07-21] MEDS ORDERED: SCOPOLAMINE TRANSDERMAL PATCH 72 HR TD SCH (10:00)
== END 2022-07-18 16:50 | DRG 871 ==
LOC: ED 20:20 → 4A 23:08 → IMCU 07-16 13:51
PROVIDERS: ADMIT Internal Medicine Geriatric Medicine; ATTEND Internal Medicine
PROC: 4A033R1 Measurement of Arterial Saturation, Peripheral, Percutaneous Approach (ICD-10-PCS; principal; 2022-07-16)
PROC: 5A09457 Assistance with Respiratory Ventilation, 24-96 Consecutive Hours, Continuous Positive Airway Pressure (ICD-10-PCS; 2022-07-16)
DX: A41.9 Sepsis, unspecified organism (principal); G92.8 Other toxic encephalopathy; J96.21 Acute and chronic respiratory failure with hypoxia; E87.1 Hypo-osmolality and hyponatremia; J44.1 Chronic obstructive pulmonary disease with (acute) exacerbation; N30.00 Acute cystitis without hematuria; E78.5 Hyperlipidemia, unspecified; M19.90 Unspecified osteoarthritis, unspecified site; Z79.82 Long term (current) use of aspirin; Z88.8 Allergy status to other drugs, medicaments and biological substances; Z66 Do not resuscitate
CPT/HCPCS: 36415; 36600; 70450; 71045; 80048; 80053; 81001; 82140; 82803; 82962; 84443; 85007; 85025; 87040; 93005; 94660; 94760; 99285; G0378; J0692; J0696; J1644; J2060; J2270; J2920; J7030